=== PATIENT | male | born 1955 | race Caucasian/White ===

== ENCOUNTER 2016-08-11 07:21 | Day surgery (SDC) | payer BC ==
[~2016-08-11] VITALS: Ht 167.6 cm; Wt 61.2 kg
[~2016-08-11 07:21] MED LIST: ADULT ASPIRIN E81 MG PO; FISH OIL1000 MG PO; MULTI VIT PO
[2016-08-11 10:22] VITALS: BP 90/55
== END 2016-08-11 10:15 | disposition home or self-care (01) | DRG 951 ==
LOC: ENDO 07:21
PROVIDERS: ATTEND Surgery
PROC: 0DJD8ZZ Inspection of Lower Intestinal Tract, Via Natural or Artificial Opening Endoscopic (ICD-10-PCS; principal; 2016-08-11)
DX: Z12.11 Encounter for screening for malignant neoplasm of colon (principal); K57.30 Diverticulosis of large intestine without perforation or abscess without bleeding